=== PATIENT | female | born 1985 | race Caucasian/White ===

== ENCOUNTER 2018-12-13 11:01 | Emergency (ER) | payer OTHER ==
[2018-12-13 11:07] VITALS: BP 99/54; PULSE 85; TEMP 98.6; BMI 21.2
--- NOTE | 2018-12-13 11:31 | PDOC ---
History of Present Illness - General Chief Complaint: Pain, Acute Stated Complaint: L ELBOW PAIN Time Seen by Provider: 12/13/18 11:18 History Source: Patient Exam Limitations: No Limitations - History of Present Illness Initial Comments: 12/13/18 11:25 33 year old female with history of and anemia presents with left elbow pain since yesterday. Patient reports being accidentally hit by a push up bar yesterday. Complaining of pain with movement, denies numbness or tingling. Occurred: reports: yesterday Severity: reports: moderate Upper Extremity Pain Location: left: forearm Method of Injury: reports: direct blow Modifying Factors: improves with: immobilization Extremity Pain Location - Extremity Pain Location Extremity Pain Locations: left: elbow Past History - Travel Traveled outside of the country in the last 30 days: No Close contact w/someone who was outside of country & ill: No - Past Medical History Allergies/Adverse Reactions: Allergies Allergy/AdvReac Type Severity Reaction Status Date / Time No Known Allergies Allergy Verified 01/06/18 16:21 Home Medications: Ambulatory Orders Ibuprofen 600 mg PO QID #15 tablet 12/13/18 Anemia: Yes COPD: No - Immunization History Immunization Up to Date: Yes - Psycho Social/Smoking Cessation Hx Smoking History: Never smoked Have you smoked in the past 12 months: No Information on smoking cessation initiated: No Hx Alcohol Use: No Drug/Substance Use Hx: No Review of Systems - Review of Systems Able to Perform ROS?: Yes Constitutional: Yes: Chills, Fever HEENTM: No: Nose Bleeding, Throat Swelling, Mouth Pain Respiratory: No: Orthopnea, Shortness of Breath, Wheezing Cardiac (ROS): No: Lightheadedness ABD/GI: No: Poor Appetite, Vomiting, Indigestion Musculoskeletal: Yes: Joint Pain, Joint Swelling. No: Back Pain, Neck Pain Integumentary: No: Bruising, Erythema Neurological: No: Headache, Numbness *Physical Exam - Vital Signs Last Vital Signs Temp Pulse Resp BP Pulse Ox 98.6 F 85 18 99/54 L 100 12/13/18 11:04 12/13/18 11:04 12/13/18 11:04 12/13/18 11:04 12/13/18 11:04 - Physical Exam General Appearance: Yes: Nourished, Appropriately Dressed HEENT: positive: TMs Normal, Pharynx Normal Neck: positive: Supple. negative: Lymphadenopathy (R), Lymphadenopathy (L) Respiratory/Chest: positive: Lungs Clear Cardiovascular: positive: Regular Rhythm, Regular Rate Extremity: positive: Normal Capillary Refill, Swelling, Other (left elbow; unable to extend or flex without pain, + bruising noted on elbow, able pronate and supinate forearm.) Neurologic: positive: Fully Oriented, Alert Medical Decision Making - Medical Decision Making 12/13/18 11:29 33 year old female with history of and anemia presents with left elbow pain since yesterday. Patient reports being accidentally hit by a push up bar yesterday. left elbow injury xray of left elbow refused analgesia urine ordered 12/13/18 12:51 pain better with analgesia xray shows no fracture or subluxation d/c home f/u with ortho Discharge - Discharge Information Problems reviewed: Yes Clinical Impression/Diagnosis: Elbow pain, left Condition: Stable Disposition: HOME - Admission No - Additional Discharge Information Prescriptions: Ibuprofen 600 mg PO QID #15 tablet - Follow up/Referral Referrals: Lima Palma MD [Primary Care Provider] - Ashu Andrew MD [Staff Physician] - (call for appointment ) - Patient Discharge Instructions Additional Instructions: Activity as tolerated Apply ice compress to area for 20 minutes 3 to 4 times daily for 3 days May take ibuprofen for pain as directed - Post Discharge Activity Work/Back to School Note: Back to Work
== END 2018-12-13 13:02 | disposition home or self-care (01) ==
LOC: JERFT 11:01
DX: S59.802A Other specified injuries of left elbow, initial encounter (principal); W22.8XXA Striking against or struck by other objects, initial encounter; Y93.89 Activity, other specified; Y92.89 Other specified places as the place of occurrence of the external cause; Y99.8 Other external cause status; D64.9 Anemia, unspecified
CPT/HCPCS: 73060-TC-LT-FY; 73070-TC-LT-FY; 84703; 99282-25